=== PATIENT | female | born 1945 | race African-American/Black ===

== ENCOUNTER 2016-07-31 19:42 | Inpatient (IN) | payer OTHER ==
[~2016-07-31] VITALS: Ht 154.9 cm; Wt 52.0 kg
[2016-07-31] MEDS ORDERED: DUONEB INH ONE ×3 (19:45→20:27)
[2016-07-31] MEDS ORDERED: METHYLPRED SOD SUCC 125 MG/2 ML VIAL ONE (20:01)
[2016-07-31] MEDS ORDERED: SODIUM CHLORIDE 0.9% 250 ML IV ONE ×2 (20:01→20:40)
[2016-07-31] MEDS ORDERED: AZITHROMYCIN 500 MG VIAL IV ONE ×2 (20:01→20:40)
[2016-07-31] MEDS ORDERED: SODIUM CHLORIDE 0.9% 1,000 ML IV SCH (20:45)
[2016-07-31] MEDS ORDERED: ONDANSETRON 4 MG VIAL IV PRN (20:45)
[2016-07-31] MEDS ORDERED: SALINE FLUSH 10 ML FLUSH PRN (20:45)
[2016-07-31 20:52] VITALS: RESP 21
[2016-07-31] MEDS ORDERED: Furosemide 20 MG/2 ML VIAL IV ONE (21:35)
[2016-07-31 22:59] VITALS: BP_SYST 148; RESP 16; TEMP 98.1
[2016-07-31 23:00] VITALS: Ht 154.9 cm; Wt 52.0 kg
[2016-07-31] MEDS: METHYLPRED SOD SUCC 40 MG VIAL IV SCH (23:24)
[2016-08-01] VITALS (7 sets, daily range): BP systolic 138–159; RESP 18–20; TEMP 98.1–98.7
[2016-08-01] MEDS: ACETAMINOPHEN 325 MG TAB PO PRN ×3 (01:08→09:56)
[2016-08-01] MEDS: SODIUM CHLORIDE 0.9% FLUSH BAG 500 ML IV SCH (02:27)
[2016-08-01] MEDS: DUONEB INH SCH ×5 (02:41→23:32)
[2016-08-01] MEDS: METHYLPRED SOD SUCC 40 MG VIAL IV SCH ×3 (08:27→23:18)
[2016-08-01] MEDS: SALINE FLUSH 10 ML FLUSH SCH ×2 (08:27→20:11)
[2016-08-01] MEDS: Furosemide 20 MG/2 ML VIAL IV SCH (16:32)
[2016-08-01] MEDS ORDERED: ALPRAZOLAM 0.25 MG TAB PO PRN (20:20)
[2016-08-02 02:51] VITALS: BP_SYST 146; RESP 18; TEMP 97.9
[2016-08-02] MEDS: SODIUM CHLORIDE 0.9% FLUSH BAG 500 ML IV SCH (03:56)
[2016-08-02] MEDS: DUONEB INH SCH ×4 (06:22→23:14)
[2016-08-02 07:21] VITALS: BP_SYST 127; RESP 16; TEMP 98.1
[2016-08-02] MEDS: METHYLPRED SOD SUCC 40 MG VIAL IV SCH (08:02)
[2016-08-02] MEDS: Furosemide 20 MG/2 ML VIAL IV SCH (08:02)
[2016-08-02] MEDS: SALINE FLUSH 10 ML FLUSH SCH ×2 (08:03→20:28)
[2016-08-02] MEDS ORDERED: VALSARTAN 80 MG TAB PO SCH (10:43)
[2016-08-02] MEDS: VALSARTAN 80 MG TAB PO SCH (11:16)
[2016-08-02] MEDS: TRAMADOL 50 MG TAB PO PRN ×2 (11:16→23:20)
[2016-08-02] MEDS: BISOPROLOL 5 MG TAB PO SCH (11:17)
[2016-08-02 11:33] VITALS: BP_SYST 115; RESP 16; TEMP 97.8
[2016-08-02 15:38] VITALS: BP_SYST 129; RESP 16; TEMP 98.2
[2016-08-02 19:50] VITALS: BP_SYST 141; RESP 18; TEMP 98.1
[2016-08-02 23:27] VITALS: BP_SYST 149; RESP 18; TEMP 98.5
[2016-08-03 03:44] VITALS: BP_SYST 136; RESP 16; TEMP 98.5
[2016-08-03] MEDS ORDERED: ASPIRIN EC 81 MG TAB PO STA (04:13)
[2016-08-03] MEDS ORDERED: NITROGLYCERIN SL 0.4 MG TAB SL PRN (04:15)
[2016-08-03] MEDS ORDERED: ASPIRIN 81 MG CHEW TAB ONE (04:22)
[2016-08-03] MEDS ORDERED: NITROGLYCERIN SL 0.4 MG TAB SL ONE (04:22)
[2016-08-03] MEDS: SODIUM CHLORIDE 0.9% FLUSH BAG 500 ML IV SCH (04:34)
[2016-08-03] MEDS ORDERED: MORPHINE 2 MG/ML SYR IV ONE (04:40)
[2016-08-03] MEDS: DUONEB INH SCH ×2 (06:11→14:15)
[2016-08-03 07:10] VITALS: BP_SYST 127; RESP 16; TEMP 98.4
[2016-08-03 08:00] VITALS: BP_SYST 127; RESP 16; TEMP 98.4
[2016-08-03] MEDS ORDERED: PREDNISONE 20 MG TAB PO SCH (09:00)
[2016-08-03] MEDS: BISOPROLOL 5 MG TAB PO SCH (09:00)
[2016-08-03] MEDS: VALSARTAN 80 MG TAB PO SCH (09:00)
[2016-08-03] MEDS ORDERED: Furosemide 20 MG TAB PO SCH (09:00)
[2016-08-03] MEDS: SALINE FLUSH 10 ML FLUSH SCH (09:01)
[2016-08-03] MEDS: TRAMADOL 50 MG TAB PO PRN (09:01)
[2016-08-03 11:07] VITALS: BP_SYST 121; RESP 16; TEMP 97.8
[2016-08-03 13:39] VITALS: BP_SYST 121; RESP 16; TEMP 97.8
== END 2016-08-03 15:54 | disposition home or self-care (01) | DRG 189 ==
LOC: ENRESERVDT → ENRESERVTM → CANRESERV → ER 19:42 → EMR 20:44 → ENPENDDIS 20:44 → PCU 22:45 → PCU2 08-01 23:31
PROVIDERS: ADMIT Family Medicine Addiction Medicine; ATTEND Family Medicine Addiction Medicine
CPT/HCPCS: 36415; 71010; 80048; 80053; 82330; 82553; 82803; 83735; 83880; 84484; 85025; 93005; 93306; 94640; 94660; 94799; 96365; 96366; 96375; 99223; 99225; 99233; 99239

== ENCOUNTER 2016-08-03 18:36 | Emergency (ER) | payer OTHER ==
[2016-08-03] MEDS ORDERED: Meclizine HCl 25 MG TAB ONE (19:45)
== END 2016-08-03 21:04 | disposition home or self-care (01) ==
LOC: ER 18:36
DX: R42 Dizziness and giddiness (principal); J44.9 Chronic obstructive pulmonary disease, unspecified; J45.909 Unspecified asthma, uncomplicated; Z79.51 Long term (current) use of inhaled steroids; I11.0 Hypertensive heart disease with heart failure; I50.9 Heart failure, unspecified
CPT/HCPCS: 36415; 71010; 80047; 85014; 93005